=== PATIENT | female | born 1955 | race Caucasian/White ===

== ENCOUNTER → 2021-01-27 09:58 | Outpatient (CLI) | payer OTHER, SELFPAY ==
[2021-01-27 10:51] LABS: COVID19 -Nasal RAPID Negative (Negative)
== END ==
PROVIDERS: PCP Family Medicine; Referring Provider Thoracic Surgery (Cardiothoracic Vascular Surgery); Visit Provider Thoracic Surgery (Cardiothoracic Vascular Surgery)
DX: Z20.822 Contact with and (suspected) exposure to COVID-19 (principal)
CPT/HCPCS: 87635; C9803

== ENCOUNTER → 2021-01-27 10:05 | Outpatient (CLI) | payer OTHER, SELFPAY ==
--- NOTE | 2021-02-01 11:26 | PM.PFT.1 ---
Pulmonary Function Test Referral & Results Date Patient Seen: 01/27/21 Requesting provider: James Moreira Indication: Asthma Results: The spirometry demonstrates an FVC of 2.03 L which is 67% of predicted. The FEV1 was measured at 1.76 L which is 74% of predicted. The FEV1/FVC ratio was 87 which is 109% of predicted. Following the administration of bronchodilator there was no appreciable change. Lung volumes show an SVC of 2.41 L which is 85% of predicted. The diffusing capacity was measured at 14.18 which is 70% of predicted. No hemoglobin value was provided, so no correction for potential anemia could be made, if appropriate. The maximum voluntary ventilation was reduced Interpretation: This study demonstrates possible very mild obstructive lung disease based on reduction FEV1 although FEV1/FVC ratio is preserved and shape a flow volume loop does not really support evidence of obstructive lung disease. There is no evidence of benefit following bronchodilator There is minimal reduction SVC suggesting perhaps very minimal restrictive lung disease There is a more significant reduction in diffusing capacity suggesting more significant disease at the capillary alveolar level, unless patient is anemic Clinical correlation suggested
== END ==
PROVIDERS: PCP Family Medicine; Referring Provider Thoracic Surgery (Cardiothoracic Vascular Surgery); Visit Provider Thoracic Surgery (Cardiothoracic Vascular Surgery)
DX: R00.1 Bradycardia, unspecified (principal); J45.998 Other asthma; Z01.810 Encounter for preprocedural cardiovascular examination; I34.0 Nonrheumatic mitral (valve) insufficiency; Z20.822 Contact with and (suspected) exposure to COVID-19
CPT/HCPCS: 87635; 94060; C9803